=== PATIENT | female | born 1965 | race Caucasian/White ===

== ENCOUNTER 2018-01-13 10:00 | Emergency (ER) | payer MEDICARE, OTHER | END 2018-01-13 12:50 | disposition home or self-care (01) | LOC: E/R 10:00 | DX: J00 Acute nasopharyngitis [common cold] (principal); I10 Essential (primary) hypertension; E11.9 Type 2 diabetes mellitus without complications | CPT/HCPCS: 99283 ==

== ENCOUNTER 2018-04-11 07:22 | Day surgery (SDC) | payer MEDICARE, OTHER ==
[~2018-04-11 07:22] MED LIST: DIAZEPAM 5 MG TAB PO; DIPHENHYDRAMINE 50 MG CAP PO; FAMOTIDINE 20 MG TAB PO; SOD CHLORIDE 0.45% 1,000 ML IV
[2018-04-11 08:58] LABS: ADD MAN DIFF? NO
[2018-04-11 09:02] LABS: BASOPHIL # 0.1 10^3/ul (0.0-0.1); BASOPHILS % 0.9 % (0.0-2.0); EOSINOPHILS # 0.1 10^3/ul (0.0-0.5); EOSINOPHILS % 1.3 % (0.0-7.0); HEMATOCRIT 35.5 % (37.0-47.0); HEMOGLOBIN 11.6 g/dl (12.0-16.0); LYMPHOCYTES # 1.8 10^3/ul (0.8-2.9); LYMPHOCYTES % 33.1 % (15.0-51.0); MEAN CORPUSCULAR HGB CONC 32.7 g/dl (32.0-37.0); MEAN CORPUSCULAR VOLUME 85.5 fl (82.0-101.0); MEAN PLATELET VOLUME 9.2 fl (7.4-10.4); MONOCYTE # 0.3 10^3/ul (0.3-0.9); MONOCYTES % 5.7 % (0.0-11.0); NEUTROPHIL # 3.2 10^3/ul (1.6-7.5); NEUTROPHILS % 58.8 % (39.0-77.0); PLATELET COUNT 358 10^3/UL (140-415); RED BLOOD COUNT 4.15 10^6/ul (4.20-5.40); RED CELL DISTRIBUTION WIDTH 13.2 % (11.5-14.5)
[2018-04-11 09:02] LABS: WHITE BLOOD COUNT 5.4 10^3/ul (4.8-10.8)
[2018-04-11 09:22] LABS: INR 0.95; PROTIME 12.8 Sec (11.9-14.9)
[2018-04-11 09:23] LABS: PARTIAL THROMBOPLASTIN TIME 28.4 Sec (25.0-35.0)
[2018-04-11 09:50] LABS: ANION GAP 10 (8-16); CARBON DIOXIDE 32 mmol/L (21-31); CHLORIDE 107 mmol/L (97-110); CHOL/HDL RATIO 2.9 RATIO; CHOLESTEROL 152 mg/dl (100-200); GLUCOSE 98 mg/dl (70-220); HDL CHOLESTEROL 51 mg/dl (37-92); LDL CHOLESTEROL,CALCULATED 82 mg/dl; TRIGLYCERIDES 95 mg/dl (0-149)
[2018-04-11 10:01] LABS: BLOOD UREA NITROGEN 11 mg/dl (7-20); CALCIUM 9.4 mg/dl (8.4-10.2); CREATININE 0.57 mg/dl (0.44-1.00); SODIUM 145 mmol/L (135-144)
[2018-04-11] MEDS ORDERED: LIDOCAINE 1% (MDV) 20 ML INJ (10:38)
[2018-04-11] MEDS ORDERED: HEPARIN 1000 UNITS/ML 10 ML INJ (10:38)
[2018-04-11] MEDS ORDERED: IODIXANOL LOCM 100 ML BTL (10:38)
[2018-04-11] MEDS ORDERED: VERAPAMIL 5 MG INJ (10:39)
[2018-04-11] MEDS ORDERED: NITROGLYCERIN (IC) 100 MCG/ML INJ (10:39)
[2018-04-11] MEDS ORDERED: FENTAnyl 50 MCG/ML VIAL (10:50)
[2018-04-11] MEDS ORDERED: MIDAZOLAM 1 MG/ML 2 ML INJ (10:50)
[2018-04-11] MEDS ORDERED: SOD CHLORIDE 0.9% 1,000 ML IV (12:11)
[2018-04-11] MEDS ORDERED: ACETAMINOPHEN 325 MG TAB PO (12:30)
[2018-04-11] MEDS ORDERED: AL HYDROX/MG HYDROX/SIMETH 30 ML CUP PO (12:30)
[2018-04-11] MEDS ORDERED: ONDANSETRON 4 MG INJ IV (12:30)
[2018-04-11] MEDS ORDERED: morphine 2 MG INJ IV (12:30)
== END 2018-04-11 15:45 | disposition home or self-care (01) ==
LOC: SDS 07:22
DX: I25.10 Atherosclerotic heart disease of native coronary artery without angina pectoris (principal); I34.0 Nonrheumatic mitral (valve) insufficiency; I10 Essential (primary) hypertension; C34.90 Malignant neoplasm of unspecified part of unspecified bronchus or lung
CPT/HCPCS: 71045; 80048; 80061; 85025; 85610; 85730; 93005; 93458